=== PATIENT | female | born 1970 | race Caucasian/White ===

== ENCOUNTER → 2017-12-28 08:51 | Outpatient (CLI) | payer OTHER, SELFPAY ==
--- NOTE | 2017-12-28 | US_ITS ---
MM Dig screening mamm BI w/CAD, US breast RT complete US breast RT complete ORDERING PHYSICIAN : Kurt Norwood MD PATIENT AGE: 47 years GENDER: Female HISTORY:. 47-year-old. No hormones . Palpable area just above the nipple 12 o'clock position right breast COMPARISON: Previous mammograms: September 2015, 2014. May 2013.2011 TECHNIQUE: Standard CC & MLO images were obtained. R2 CAD reviewed. . Also additional CC and MLO spot views both right and left breast DIAGNOSTIC MAMMOGRAM-BILATERAL MAMMOGRAM SPOT VIEWS: RIGHT BREAST.: Changes since 2016. Large region of vague increased density throughout central right breast 12 o'clock position which has developed since prior study. ., Associated with scattered small vague pleomorphic calcifications throughout this region which are is which are suspect for carcinoma. The margins of this entire region difficult to delineate an ill-defined there does appear to have a more stellate radiating character margin on several images... There are focal areas of slightly greater density within this region, but I believe the entire abnormal area spans over 5 cm transverse on cc view x questionably up to 5.5 cm maximum AP dimension on MLO view-(these measurements including at include the ill-defined radiating margin). Findings here do seem to corresponds to the palpable area as well towards 12:00 above nipple. Ultrasound will be performed.. LEFT BREAST the initial images reviewed by Dr. Lubin raise question regarding a small area at medial left breast. This appears stable compared to 2016 & other studies and is of less concern on subsequent spot views. . spot views decreased concern regarding any significant new finding left breast. Routine annual follow-up for left adequate. ULTRASOUND RIGHT BREAST with axillary survey There is a palpable area of just above the nipple 12:00. On ultrasound ill-defined hypoechoic region here which warrants ultrasound-guided biopsy. It spans up4 cm maximum transverse, on my measurement 4 cm length. X 3.5 cm x 2.3 cm AP. Again ill-defined margins of this somewhat vague ill-defined hypoechoic area.. There are some final images would suggest a may be slightly larger but again difficult to delineate its margins . . There is a right axillary node which measures 3.2 cm length. The cortex appears thickened & measures up to 6 mm. On submitted images. This raises concern regarding liza involvement and thus would benefit from ultrasound guided FNA biopsy is well when the patient is evaluated. Other less concerning moderate size nodes at axillary region additionally noted.. 4 nodes were specifically identified. Note: This Study was initially reviewed by Dr. Lubin , but I have been asked to dictate the case today to expedite and facilitate reporting ------IMPRESSION: RIGHT BREAST 1. Ultrasound-Guided Biopsy recommended ultrasound identified at least 4 cm vague hypoechoic mass just above the nipple at 12:00. This corresponds to the palpable area. 2. Several lymph nodes with generous thickness cortex-up to 6 mm on submitted images. . Recommend ultrasound-guided FNA biopsy of lymph node with most prominent cortex 3. Right mammogram reveals Ill-defined region increased density region throughout 12:00 corresponds with the palpable area clinically as. Ill-defined somewhat radiating margins about this area. Pleomorphic calcifications scattered throughout this area which are highly suspect for carcinoma also noted. . LEFT BREAST. Moderately dense breasts. No new areas of significant concern. Routine follow-up BI-RADS Category: 5 Suspicious Abnormality-Biopsy recommended RECOMMENDED FOLLOW-UP: BIO - BIOPSY RECOMMENDED (Ultrasound-guided biopsy right breast an
== END ==
PROVIDERS: Family Provider Family Medicine; PCP Family Medicine; Visit Provider Obstetrics & Gynecology
DX: Z12.31 Encounter for screening mammogram for malignant neoplasm of breast (principal); N63.10 Unspecified lump in the right breast, unspecified quadrant
CPT/HCPCS: 76641; 77066; 77067